=== PATIENT | female | born 1935 | race Caucasian/White ===

== ENCOUNTER 2019-04-10 16:55 | Emergency (ER) | payer OTHER ==
[~2019-04-10] VITALS: Ht 154.9 cm; Wt 56.7 kg
[~2019-04-10 16:55] MED LIST: AMLO5 PO; ASPI325EC PO; CELE200 PO; LISI20 PO; METPRE4DP PO; Norco 10-325 T1 EACH PO; ROSU5 PO; TRAM50 PO; Zofran Odt4 MG SL; [UNRECOGNIZED DRUG - REMARK]
== END 2019-04-10 19:12 | disposition home or self-care (01) ==
LOC: ER 16:55
DX: S86.911A Strain of unspecified muscle(s) and tendon(s) at lower leg level, right leg, initial encounter (principal); I10 Essential (primary) hypertension; F17.210 Nicotine dependence, cigarettes, uncomplicated; Z86.73 Personal history of transient ischemic attack (TIA), and cerebral infarction without residual deficits; Z88.8 Allergy status to other drugs, medicaments and biological substances; Z88.0 Allergy status to penicillin; Z79.899 Other long term (current) drug therapy; Z79.82 Long term (current) use of aspirin; W18.39XA Other fall on same level, initial encounter
CPT/HCPCS: 73564; 99283-25

== ENCOUNTER 2019-12-15 18:10 | Emergency (ER) | payer OTHER ==
[~2019-12-15] VITALS: Ht 154.9 cm; Wt 53.5 kg
[2019-12-15 20:25] LABS: Calcium, Ionized (POC) 1.16 mmol/L (1.10-1.46); Chloride (POC) 106 mmol/L (98-108); Creatinine (POC) 1.1 mg/dL (0.6-1.0); Glucose (ISTAT POC) 98 mg/dL (70-99); Hemoglobin (POC) 14.3 g/dL (12.0-16.0); Potassium (POC) 4.1 mmol/L (3.5-5.5); Sodium (POC) 139 mmol/L (135-148); Total CO2 (POC) 25 mmol/L (21-32)
[2019-12-15] MEDS ORDERED: HYDR1TAB94 PO (21:16)
[2019-12-19] MEDS ORDERED: Norco 5-325 Ta1 EACH PO (20:57)
[2019-12-25] MEDS ORDERED: Roxicodone5 MG PO (16:45)
[2019-12-25] MEDS ORDERED: Kristalose20 GM PO (16:45)
== END 2019-12-15 21:25 | disposition home or self-care (01) ==
LOC: ER 18:10
PROVIDERS: Emergency Medicine
DX: S32.019A Unspecified fracture of first lumbar vertebra, initial encounter for closed fracture (principal); S32.029A Unspecified fracture of second lumbar vertebra, initial encounter for closed fracture; S32.049A Unspecified fracture of fourth lumbar vertebra, initial encounter for closed fracture; S32.039A Unspecified fracture of third lumbar vertebra, initial encounter for closed fracture; F03.90 Unspecified dementia, unspecified severity, without behavioral disturbance, psychotic disturbance, mood disturbance, and anxiety; Z88.0 Allergy status to penicillin; Z88.5 Allergy status to narcotic agent; Z79.899 Other long term (current) drug therapy; I10 Essential (primary) hypertension; Z86.73 Personal history of transient ischemic attack (TIA), and cerebral infarction without residual deficits; F17.200 Nicotine dependence, unspecified, uncomplicated; W18.30XA Fall on same level, unspecified, initial encounter
CPT/HCPCS: 36415; 72100; 72170; 80047; 85014; 93005; 93010; 99284-25

== ENCOUNTER 2020-06-27 17:10 | Emergency (ER) | payer OTHER ==
[~2020-06-27] VITALS: Ht 167.6 cm; Wt 59.0 kg
[~2020-06-27 17:10] MED LIST changes: +HYDR1TAB94 PO; +Kristalose20 GM PO; +Norco 5-325 Ta1 EACH PO; +Roxicodone5 MG PO
[2020-06-27 18:00] LABS: BASOPHILS ABSOLUTE AUTO 0.05 K/mm3 (0.00-0.23); BASOPHILS PERCENT AUTO 1 % (0-2); EOSINOPHILS ABSOLUTE AUTO 0.15 K/mm3 (0.00-0.68); EOSINOPHILS PERCENT AUTO 2 % (0-6); Hematocrit 38.4 % (33.0-51.0); Hemoglobin 12.2 g/dL (11.5-16.0); IMMATURE GRAN ABSOLUTE AUTO 0.03 K/mm3 (0.00-0.10); IMMATURE GRAN PERCENT AUTO 0 % (0-1); LYMPHOCYTES ABSOLUTE AUTO 2.29 K/mm3 (0.84-5.20); LYMPHOCYTES PERCENT AUTO 33 % (21-46); MONOCYTES ABSOLUTE AUTO 0.44 K/mm3 (0.16-1.47); MONOCYTES PERCENT AUTO 6 % (4-13); Mean Corpuscular HGB 28.9 pg (26.0-34.0); Mean Corpuscular HGB Conc 31.8 g/dL (31.5-36.5); Mean Corpuscular Volume 91 fL (80-100); Mean Platelet Volume 10.5 fL (9.1-12.4); NEUTROPHILS ABSOLUTE AUTO 4.08 K/mm3 (1.96-9.15); NEUTROPHILS PERCENT AUTO 58 % (41-73); Platelet Count 289 K/mm3 (150-400); RDW Coefficient Variation 13.2 % (11.7-14.2); RDW Standard Deviation 43.8 fL (35.1-46.3); Red Blood Cell Count 4.22 M/mm3 (3.80-5.20); White Blood Cell Count 7.04 K/mm3 (4.00-11.30)
[2020-06-27 18:11] LABS: Albumin, Blood 3.4 g/dL (3.4-5.0); Albumin/Globulin Ratio 1.1 (0.8-1.8); Bilirubin, Total 0.3 mg/dL (0.1-1.0); Bun/Creatinine Ratio 22.6 (12.0-20.0); Calcium, Blood 8.5 mg/dL (8.5-10.1); Creatinine, Blood 0.98 mg/dL (0.40-1.00); Globulin, Blood 3.2 g/dL (2.2-4.0); Potassium, Blood 4.6 mmol/L (3.5-5.5); Total Protein, Blood 6.6 g/dL (6.4-8.2)
== END 2020-06-27 20:12 | disposition home or self-care (01) ==
LOC: ER 17:10
PROVIDERS: Emergency Medicine
DX: S40.012A Contusion of left shoulder, initial encounter (principal); S20.212A Contusion of left front wall of thorax, initial encounter; S09.90XA Unspecified injury of head, initial encounter; Z88.0 Allergy status to penicillin; Z88.5 Allergy status to narcotic agent; Z79.899 Other long term (current) drug therapy; I10 Essential (primary) hypertension; F17.200 Nicotine dependence, unspecified, uncomplicated; W01.0XXA Fall on same level from slipping, tripping and stumbling without subsequent striking against object, initial encounter; Y92.000 Kitchen of unspecified non-institutional (private) residence as the place of occurrence of the external cause
CPT/HCPCS: 70450; 71045; 72125; 73030; 80053; 85025; 93005; 93010; 99284-25

== ENCOUNTER 2020-09-23 18:10 | Emergency (ER) | payer OTHER ==
[~2020-09-23] VITALS: Ht 154.9 cm; Wt 54.0 kg
[2020-09-23] MEDS ORDERED: Prednisone10 MG PO (21:36)
== END 2020-09-23 21:44 | disposition home or self-care (01) ==
LOC: ER 18:10
DX: M79.642 Pain in left hand (principal); E78.5 Hyperlipidemia, unspecified; I10 Essential (primary) hypertension; F17.200 Nicotine dependence, unspecified, uncomplicated; M25.532 Pain in left wrist
CPT/HCPCS: 29125; 36415; 73130; 99283-25; A9270; J7512; L3917

== ENCOUNTER 2021-02-11 17:27 | Inpatient (IN) | payer OTHER ==
[~2021-02-11] VITALS: Ht 147.3 cm; Wt 49.7 kg
[~2021-02-11 17:27] MED LIST changes: +Prednisone10 MG PO
[2021-02-11 18:00] LABS: BASOPHILS ABSOLUTE AUTO 0.05 K/mm3 (0.00-0.23); BASOPHILS PERCENT AUTO 0 % (0-2); EOSINOPHILS ABSOLUTE AUTO 0.06 K/mm3 (0.00-0.68); EOSINOPHILS PERCENT AUTO 0 % (0-6); Hematocrit 36.2 % (33.0-51.0); Hemoglobin 11.4 g/dL (11.5-16.0); IMMATURE GRAN ABSOLUTE AUTO 0.08 K/mm3 (0.00-0.10); IMMATURE GRAN PERCENT AUTO 1 % (0-1); LYMPHOCYTES ABSOLUTE AUTO 1.44 K/mm3 (0.84-5.20); LYMPHOCYTES PERCENT AUTO 10 % (21-46); MONOCYTES ABSOLUTE AUTO 0.69 K/mm3 (0.16-1.47); MONOCYTES PERCENT AUTO 5 % (4-13); Mean Corpuscular HGB 28.7 pg (26.0-34.0); Mean Corpuscular HGB Conc 31.5 g/dL (31.5-36.5); Mean Corpuscular Volume 91 fL (80-100); Mean Platelet Volume 10.7 fL (9.1-12.4); NEUTROPHILS ABSOLUTE AUTO 12.06 K/mm3 (1.96-9.15); NEUTROPHILS PERCENT AUTO 84 % (41-73); Platelet Count 467 K/mm3 (150-400); RDW Coefficient Variation 13.5 % (11.7-14.2); RDW Standard Deviation 45.4 fL (35.1-46.3); Red Blood Cell Count 3.97 M/mm3 (3.80-5.20); White Blood Cell Count 14.38 K/mm3 (4.00-11.30)
[2021-02-11 18:14] LABS: Alanine Aminotransfer (ALT/SGP 18 U/L (12-78); Albumin, Blood 2.9 g/dL (3.4-5.0); Albumin/Globulin Ratio 0.9 (0.8-1.8); Alk Phos 102 U/L (50-136); Anion Gap 4 mmol/L (6-16); Aspartate Aminotrans (AST/SGOT 21 U/L (12-37); Bilirubin, Total 0.3 mg/dL (0.1-1.0); Blood Urea Nitrogen 13 mg/dL (8-24); Bun/Creatinine Ratio 15.2 (12.0-20.0); CO2, Blood 27 mmol/L (21-32); Calcium, Blood 8.2 mg/dL (8.5-10.1); Chloride, Blood 112 mmol/L (98-108); Creatinine, Blood 0.86 mg/dL (0.40-1.00); Globulin, Blood 3.4 g/dL (2.2-4.0); Glomerular Filtration Rate >60 (60-); Glucose, Blood 114 mg/dL (70-99); Magnesium, Blood 2.2 mg/dL (1.6-2.4); Potassium, Blood 4.2 mmol/L (3.5-5.5); Sodium, Blood 143 mmol/L (136-145); Total Protein, Blood 6.3 g/dL (6.4-8.2)
[2021-02-11 23:05] LABS: SARS-Cov-2 (COVID-19) PCR, MMC NEGATIVE (NEGATIVE)
--- NOTE | 2021-02-12 03:09 | NUR ---
PT ALERT AND ORIENTED TO SELF ONLY. SHE IS UNABLE TO PROVIDE A HISTORY AND DOES NOT RECALL NAMES OF ANY FAMILY MEMBERS. ADMISSION HISTORY COMPLETED TO BEST OF ABILITY, UNABLE TO VERIFY MEDICATIONS, ALLERGIES, OR REACTIONS TO MEDICATIONS. WILL REQUEST DAY SHIFT TO CONFIRM WITH FAMILY.
[2021-02-12 04:12] LABS: BASOPHILS ABSOLUTE AUTO 0.03 K/mm3 (0.00-0.23); BASOPHILS PERCENT AUTO 0 % (0-2); EOSINOPHILS ABSOLUTE AUTO 0.03 K/mm3 (0.00-0.68); EOSINOPHILS PERCENT AUTO 0 % (0-6); Hematocrit 30.8 % (33.0-51.0); Hemoglobin 9.9 g/dL (11.5-16.0); IMMATURE GRAN ABSOLUTE AUTO 0.05 K/mm3 (0.00-0.10); IMMATURE GRAN PERCENT AUTO 1 % (0-1); LYMPHOCYTES ABSOLUTE AUTO 1.91 K/mm3 (0.84-5.20); LYMPHOCYTES PERCENT AUTO 17 % (21-46); MONOCYTES ABSOLUTE AUTO 0.78 K/mm3 (0.16-1.47); MONOCYTES PERCENT AUTO 7 % (4-13); Mean Corpuscular HGB 29.2 pg (26.0-34.0); Mean Corpuscular HGB Conc 32.1 g/dL (31.5-36.5); Mean Corpuscular Volume 91 fL (80-100); Mean Platelet Volume 10.3 fL (9.1-12.4); NEUTROPHILS ABSOLUTE AUTO 8.25 K/mm3 (1.96-9.15); NEUTROPHILS PERCENT AUTO 75 % (41-73); Platelet Count 361 K/mm3 (150-400); RDW Coefficient Variation 13.4 % (11.7-14.2); RDW Standard Deviation 45.2 fL (35.1-46.3); Red Blood Cell Count 3.39 M/mm3 (3.80-5.20); White Blood Cell Count 11.05 K/mm3 (4.00-11.30)
[2021-02-12 04:35] LABS: Alanine Aminotransfer (ALT/SGP 12 U/L (12-78); Albumin, Blood 2.4 g/dL (3.4-5.0); Albumin/Globulin Ratio 0.8 (0.8-1.8); Alk Phos 94 U/L (50-136); Anion Gap 4 mmol/L (6-16); Aspartate Aminotrans (AST/SGOT 14 U/L (12-37); Bilirubin, Total 0.4 mg/dL (0.1-1.0); Blood Urea Nitrogen 12 mg/dL (8-24); Bun/Creatinine Ratio 13.7 (12.0-20.0); CO2, Blood 28 mmol/L (21-32); Calcium, Blood 8.1 mg/dL (8.5-10.1); Chloride, Blood 111 mmol/L (98-108); Creatinine, Blood 0.88 mg/dL (0.40-1.00); Glomerular Filtration Rate >60 (60-); Glucose, Blood 100 mg/dL (70-99); Potassium, Blood 3.9 mmol/L (3.5-5.5); Sodium, Blood 143 mmol/L (136-145); Total Protein, Blood 5.4 g/dL (6.4-8.2)
--- NOTE | 2021-02-12 05:38 | NUR ---
SHIFT SUMMARY: SIA IS ALERT AND ORIENTED TO SELF. VSS, SYSTOLIC BP IMPROVES SIGNIFICANTLY AFTER ADMINISTRATION OF PAIN MEDICATION. SHE WAS MADE NPO AT MIDNIGHT, IV FLUIDS INFUSING. OLIMPIA PATENT, ATTENDS IN PLACE D/T UNKNOWN CONTINENCE STATUS. IV TO L AC PATENT, FLUIDS INFUSING. SHE HAS BEEN REPOSITIONED IN AN ATTEMPT TO ALLEVIATE HER PAIN. SHE HAS COMMENTED ON THINGS IN THE ROOM WHICH ARE NOT PRESENT. SHE IS LYING IN BED WITH THE CALL LIGHT IN REACH, BED ALARM ON FOR SAFETY. WILL REPORT TO DAY SHIFT RN.
--- NOTE | 2021-02-12 09:53 | NUR ---
ATTEMPTED TO CALL PT SON SHERRILL AT APPROX 0913. NO ANSWER AND VOICEMAIL SET UP.
--- NOTE | 2021-02-12 11:11 | NUR ---
MADE A PHONE CALL TO ABELARDO MCCARTNEY AT 1110, HE DID NOT ANSWER.
--- NOTE | 2021-02-12 12:48 | NUR ---
TALKED TO PATIENTS SON SHERRILL AT APPROX 1225, HE STATED THAT HE WOULD BE WILLING TO COME IN TO HELP CLARIFY PATIENTS PREFERENCES.
--- NOTE | 2021-02-12 15:38 | NUR ---
PT LEFT FOR SURGERY AT THIS TIME. GRANDSON WITH PATIENT FOR CONSENT.
--- NOTE | 2021-02-12 18:04 | NUR ---
02/12/21 1803 Nichelle Garza PT ENTERED OR WITH DOAN CATHETER
--- NOTE | 2021-02-12 18:53 | NUR ---
PT ARRIVED TO UNIT AT APPROX 1840. VITAL SIGNS TAKEN. PT HYPERTENSIVE & SATURATIONS OR 98% ON 3L. PT ASLEEP, RANDOMLY CALLING OUT. DRESSING C/D/I. PT UNABLE TO ANSWER QUESTIONS AND FOLLOW DIRECTIONS, UNABLE TO ASSESS. CLOSE TO BASELINE. BED ALARM ON, WILL REPORT TO ONCOMING RN.
--- NOTE | 2021-02-13 07:24 | NUR ---
SHIFT SUMMARY POD1 R FEMORAL GAMMA RODDING, ALERT BUT CONFUSED, REFUSED NURSING CARE, BED ALARM ON FOR SAFETY, DOAN IN PLACE AND DRAINING TO GRAVITY. NO ACUTE EVETNS THIS SHIFT. CALL LIGHT IN REACH, REPORT GIVEN TO DAY RN.
[2021-02-13 08:21] LABS: BASOPHILS ABSOLUTE AUTO 0.01 K/mm3 (0.00-0.23); BASOPHILS PERCENT AUTO 0 % (0-2); EOSINOPHILS PERCENT AUTO 0 % (0-6); Hematocrit 27.9 % (33.0-51.0); Hemoglobin 8.7 g/dL (11.5-16.0); IMMATURE GRAN ABSOLUTE AUTO 0.05 K/mm3 (0.00-0.10); IMMATURE GRAN PERCENT AUTO 1 % (0-1); LYMPHOCYTES ABSOLUTE AUTO 1.33 K/mm3 (0.84-5.20); LYMPHOCYTES PERCENT AUTO 14 % (21-46); MONOCYTES PERCENT AUTO 8 % (4-13); Mean Corpuscular HGB Conc 31.2 g/dL (31.5-36.5); Mean Corpuscular Volume 93 fL (80-100); Mean Platelet Volume 10.6 fL (9.1-12.4); NEUTROPHILS ABSOLUTE AUTO 7.28 K/mm3 (1.96-9.15); NEUTROPHILS PERCENT AUTO 77 % (41-73); Platelet Count 306 K/mm3 (150-400); RDW Coefficient Variation 13.5 % (11.7-14.2); RDW Standard Deviation 45.9 fL (35.1-46.3); White Blood Cell Count 9.47 K/mm3 (4.00-11.30)
[2021-02-13 08:38] LABS: Albumin, Blood 1.8 g/dL (3.4-5.0); Anion Gap 2 mmol/L (6-16); Blood Urea Nitrogen 16 mg/dL (8-24); Bun/Creatinine Ratio 14.4 (12.0-20.0); CO2, Blood 28 mmol/L (21-32); Calcium, Blood 7.9 mg/dL (8.5-10.1); Chloride, Blood 111 mmol/L (98-108); Creatinine, Blood 1.11 mg/dL (0.40-1.00); Glomerular Filtration Rate 47 (60-); Glucose, Blood 83 mg/dL (70-99); Phosphorus, Blood 4.5 mg/dL (2.5-4.9); Potassium, Blood 4.6 mmol/L (3.5-5.5); Sodium, Blood 141 mmol/L (136-145)
--- NOTE | 2021-02-13 10:32 | NUR ---
LEFT MESSAGE WITH APS TO NOTIFY THEM OF LARGE PRESSURE ULCERS TO BILATERAL GLUTEAL FOLDS. APPROX 9CM LONG BY 3 CM WIDE. PICTURES IN CHART. PRESENT ON ARRIVAL TO HOSPITAL. NOTIFED PHYSICIAN OF FINDINGS. PT ABLE TO HELP REPOSITION AND ROLL IN BED AT THIS TIME AFTER SURGERY.
--- NOTE | 2021-02-13 11:11 | NUR ---
TALKED WITH DR. ROSALES AT APPROX 1020 THIS AM. REPORTED WOUNDS ON PT BILATERAL GLUTEAL FOLDS AND ASKED ABOUT ORAL PAIN MEDICATION PT NO LONGER HAS IV ACCESS. ORDERED NORCO 1-2 TABS Q6H NEEDED.
--- NOTE | 2021-02-13 17:30 | NUR ---
SHIFT SUMMARY POD1 R HIP GAMMA NAILING. INCISIONS X3 CHANG[address] JOSHUA TODAY TO AQUACEL DRESSINGS, C/D/I. PRESSURE SORES TO BILATERAL COCCYX, COVERED WITH MEPLEX C/D/I, SEE PHOTOS IN CHART. PT CONFUSED AND YELLING OUT. PAIN BEING TREATED WITH ORAL PAIN MEDICATION. PT PULLED OUT HER IV THIS AM. DOAN IN PLACE DRAINING YELLOW URINE, PLAN FOR REMOVAL TOMORROW. P/T AND O/T ORDERED FOR TOMORROW. WILL REPORT TO ONCOMING RN.
[2021-02-14 04:10] LABS: BASOPHILS ABSOLUTE AUTO 0.02 K/mm3 (0.00-0.23); BASOPHILS PERCENT AUTO 0 % (0-2); EOSINOPHILS PERCENT AUTO 1 % (0-6); Hematocrit 25.3 % (33.0-51.0); IMMATURE GRAN ABSOLUTE AUTO 0.04 K/mm3 (0.00-0.10); IMMATURE GRAN PERCENT AUTO 1 % (0-1); LYMPHOCYTES PERCENT AUTO 26 % (21-46); MONOCYTES ABSOLUTE AUTO 0.79 K/mm3 (0.16-1.47); MONOCYTES PERCENT AUTO 10 % (4-13); Mean Corpuscular HGB 29.1 pg (26.0-34.0); Mean Corpuscular HGB Conc 31.6 g/dL (31.5-36.5); Mean Corpuscular Volume 92 fL (80-100); Mean Platelet Volume 10.3 fL (9.1-12.4); NEUTROPHILS PERCENT AUTO 62 % (41-73); Platelet Count 275 K/mm3 (150-400); RDW Coefficient Variation 13.7 % (11.7-14.2); RDW Standard Deviation 45.7 fL (35.1-46.3); Red Blood Cell Count 2.75 M/mm3 (3.80-5.20); White Blood Cell Count 8.05 K/mm3 (4.00-11.30)
[2021-02-14 04:28] LABS: Bun/Creatinine Ratio 16.3 (12.0-20.0); Calcium, Blood 7.9 mg/dL (8.5-10.1); Creatinine, Blood 1.41 mg/dL (0.40-1.00); Potassium, Blood 4.6 mmol/L (3.5-5.5)
--- NOTE | 2021-02-14 06:23 | NUR ---
PT IS A/OX1, TO SELF. FORGETFUL AND CONFUSED. HX OF DEMENTIA. DOES NOT USE CALL LIGHT, BUT DOES YELL OUT. STAFF NEED TO ANTICIPATE HER NEEDS. DOAN CATHETER PATENT, DRAINING CLEAR/YELLOW URINE. CBS, SATS 92-95% ON RA. WOUND TO LT POSTERIOR THIGH AND RT MEDIAL THIGH BOTH COVERED WITH MEPILEX DRESSINGS. PICTURES IN CHART. RIGHT HIP INCISION COVERED WITH FOAM DRESSING. ALL DRSG'S ARE CDI. NO PIV D/T PT PULLS THEM OUT.
--- NOTE | 2021-02-14 17:54 | NUR ---
PATIENT WORKED WITH OT AND PT TODAY. WAS UP TO CHAIR FOR A SHORT AMOUNT OF TIME. PATIENT IS MAX ASSIST FOR TRANSFERS PER THERAPY. DRESSING TO RIGHT HIP CDI. PATIENT IS ALERT AND ORIENTED TO SELF ONLY. UNABLE TO MAKE NEEDS AND WANTS KNOWN. DOAN CATH TAKEN OUT AT 1430 TODAY. WILL MONITOR.
--- NOTE | 2021-02-14 23:58 | NUR ---
ASSUMED CARE AT APPROX. 2300.
--- NOTE | 2021-02-15 01:24 | NUR ---
ATTEMPTED TO ROTATE PT WITH PILLOWS UNDER HIPS. PT REQUESTED THEM TO BE REMOVED. ELEVATED HEAD OF BED PER PT'S REQUEST.
--- NOTE | 2021-02-15 05:42 | NUR ---
SHIFT SUMMARY POD 3 FOR R HIP GAMMA NAIL. AQUACEL IN PLACE X2 ON R HIP AND C/D/I. PT PICKED AT PROXIMAL AQUACEL AND THAT WAS REPLACED DURING SHIFT. PT IS INCONTINENT AND ATTENDS IS IN PLACE. PT IS A&O X0 AND IS VERY CONFUSED. PT SHOWED NOT SIGNS OF N/V. PT REPORTS PAIN AND FLACC SCALE USED TO ASSESS. PT MEDICATED PER EMAR PRN. ROTATED PT THROUGHOUT SHIFT AND APPLIED ICE THERAPY. PT DECLINED REPOSITIONING WITH PILLOWS MULTIPLE TIMES. PT IS CURRENTLY ASLEEP IN BED AND CALL LIGHT IS WITHIN REACH. BED ALARM ON.
[2021-02-15 08:23] LABS: BASOPHILS ABSOLUTE AUTO 0.02 K/mm3 (0.00-0.23); BASOPHILS PERCENT AUTO 0 % (0-2); EOSINOPHILS PERCENT AUTO 1 % (0-6); Hematocrit 28.9 % (33.0-51.0); Hemoglobin 9.3 g/dL (11.5-16.0); IMMATURE GRAN ABSOLUTE AUTO 0.05 K/mm3 (0.00-0.10); IMMATURE GRAN PERCENT AUTO 1 % (0-1); LYMPHOCYTES ABSOLUTE AUTO 1.48 K/mm3 (0.84-5.20); LYMPHOCYTES PERCENT AUTO 17 % (21-46); MONOCYTES ABSOLUTE AUTO 0.64 K/mm3 (0.16-1.47); MONOCYTES PERCENT AUTO 7 % (4-13); Mean Corpuscular HGB 29.2 pg (26.0-34.0); Mean Corpuscular HGB Conc 32.2 g/dL (31.5-36.5); Mean Corpuscular Volume 91 fL (80-100); Mean Platelet Volume 9.9 fL (9.1-12.4); NEUTROPHILS ABSOLUTE AUTO 6.63 K/mm3 (1.96-9.15); NEUTROPHILS PERCENT AUTO 74 % (41-73); Platelet Count 360 K/mm3 (150-400); RDW Coefficient Variation 13.2 % (11.7-14.2); RDW Standard Deviation 44.1 fL (35.1-46.3); Red Blood Cell Count 3.18 M/mm3 (3.80-5.20); White Blood Cell Count 8.92 K/mm3 (4.00-11.30)
[2021-02-15 08:38] LABS: Bun/Creatinine Ratio 20.6 (12.0-20.0); Calcium, Blood 8.1 mg/dL (8.5-10.1); Creatinine, Blood 0.97 mg/dL (0.40-1.00); Potassium, Blood 4.3 mmol/L (3.5-5.5)
--- NOTE | 2021-02-15 13:08 | NUR ---
Update 02/15/21: Contacted Laxmi Tolliver for status check on approval to SNF. Requested that we re-fax paperwork, as they have not received it. Packet sent for review. Will also request prior auth as soon as approval received. Plan to contact family this evening to provide updates. Anticipate needs at time of discharge to include: SNF acceptance and prior auth, child protective services social worker - LTC planning with family, hospital F/U within 5-7 days, Negative COVID test, and transport to facility.
--- NOTE | 2021-02-15 17:17 | NUR ---
PATIENT ALERT TO SELF ONLY. PATIENT UNABLE TO MAKE WANTS AND NEEDS KNOWN, STAFF ANTICIPATES NEEDS. PATIENT OFTEN CRIES OUT BUT UNABLE TO TELL STAFF WHAT SHE IS CRYING ABOUT. PATIENT IS VERY CONFUSED. PATIENT DID WORK WITH BOTH OT AND PT TODAY AND WAS ABLE TO USE THE BSC AND HAD A MEDIUM SIZE BOWEL MOVEMENT. NO SIGNS OR SYMPTOMS ACUTE DISTRESS NOTED, CALL LIGHT AND WATER IN REACH BUT DOES NOT KNOW HOW TO USE THE CALL LIGHT. PATIENT HAS BEEN ACCEPTED TO A SNF/LTC FACILITY, CASE MANAGEMENT GOING TO CONTACT APS TO GO OVER PATIENTS CASE. UNABLE TO CONTACT ANY FAMILY, NO NUMBER FOR ELIAS IN CHART AND IS NOT ANSWERING THE PHONE. DRESSING TO RIGHT HIP C/D/I, DRESSINGS TO BILATER BACK THIGHS INTACT. BED ALARM ON AND WORKING, BED IN LOWEST POSITION. WILL MONITOR.
--- NOTE | 2021-02-16 05:30 | NUR ---
PT IS A/OX1, TO SELF. SHE IS CONFUSED. DOES NOT USE CALL LIGHT SO STAFF NEED TO ANTICPATE HER NEEDS. POD #4 FOR GAMMA NAILING TO RT HIP. SHE DID REMOVE DRESSINGS TO RIGHT HIP; NEW DRESSINGS APPLIED. THREE INCISIONS CDI W/ANGUS. NO S/SX INFECTION NOTED. DRSG'S TO RT THIGH AND LT THIGH ARE CDI. WEARS DISPOSABLE ADULT BRIEFS FOR B/B INCONTINENCE. STARTED SEROQUEL AND TRAZODONE YESTERDAY. MEDICATED WITH PRN NORCO X2 FOR PAIN. GOOD RESULTS.
[2021-02-16 09:48] LABS: SARS-Cov-2 (COVID-19) PCR, MMC NEGATIVE (NEGATIVE)
[2021-02-16] MEDS ORDERED: ACET325 PO (09:48)
[2021-02-16] MEDS ORDERED: HYDROCODONE-AC1 EA14 PO (09:50)
[2021-02-16] MEDS ORDERED: DOCU100 PO (09:50)
[2021-02-16] MEDS ORDERED: Seroquel Xr50 MG PO (09:50)
[2021-02-16] MEDS ORDERED: TRAZ50 PO (09:51)
--- NOTE | 2021-02-16 13:15 | NUR ---
ATTEMPTED TO CALL REPORT TO [facility], UNABLE TO SPEAK TO ANYONE, THEY TOOK CALL BACK NUMBER AND SAID WILL CALL BACK. INFORMED THEM TRANSPORT IS SET UP FOR 1315 TODAY.
--- NOTE | 2021-02-16 13:58 | NUR ---
Late Entry Copied FROM [facility] EMR 02/15/21 Update: ACCEPTED TO [facility], [place]. PRIOR AUTH RECEIVED FROM [facility]. NURSE JANIA CARING FOR PT. PROVIDED UPDATE THAT APS IS INVOLVED WITH AN OPEN CASE AND THAT THEY HAVE BEEN UNABLE TO CONTACT FAMILY FOR PT. I ATTEMPTED MULTIPLE TIMES TO CALL THE HOME NUMBER LISTED. NO OTHER NUMBERS LISTED. TRANSPORTATION IS SCHEDULED TO [facility] [place] AT 1315 ON 02/16/21. PT. WILL NEED TOOLMAN ASSISTANCE AT FACILITY WHILE RECEIVING REHAB.
--- NOTE | 2021-02-16 14:02 | NUR ---
UPDATE 02/16/21: DISCHARGE PACKET DELIVERED TO PATIENT'S ROOM. COVID TEST NEGATIVE. FAXED RESULTS TO FACILITY. PT. IS SCHEDULED FOR TRANSPORT VIA [facility]. RECEIVED CALL FROM SHE WHITE THAT [facility] ADMIN IS CONCERNED REGARDING FAMILY HISTORY OF COVID. WE DISCUSSED THE TWO NEGATIVE COVID TESTS AND THAT HER EXPOSURE WOULD NOT HAVE BEEN VERY RECENT. THEY ALSO EXPRESSED CONCERNS WITH NOT HAVING FAMILY INVOLVED AND ADVISED THAT THEY WOULD HAVE TO DELAY ACCEPTANCE UNTIL A FAMILY MEMBER WAS IN PLACE TO ASSIST WITH PT. I WAS ABLE TO TRACK DOWN A NUMBER FOR HER GRANDSON EDUAR. CONTACTED HIM AND HE IS AGREEABLE TO ASSIST IN ANYWAY NEEDED. HIS CONTACT NUMBER IS [phone]. PROVIDED UPDATE TO [facility]. THEY ARE STILL CONCERNED WITH RISK OF COVID EXPOSURE DESPITE VACCINE AND TWO NEGATIVE COVID TESTS. THEY ARE REQUESTING THAT PT. STAY IN THE HOSPITAL FOR 3 MORE DAYS, LAST EXPOSURE TO FAMILY IS UNKNOWN. I WILL CONTACT HER GRANDSON TO DISCUSS FURTHER. CONTACTED PATIENT'S GRANDSON AND HE ADVISED THAT IT IS NOT ACCURATE THAT SHE HAS BEEN EXPOSED TO COVID. 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 THE FAMILY HAD A ASSOCIATED THE CVA WITH HIM RECEIVING THE COVID VACCINE A FEW WEEKS PRIOR. THE GRANDSON BELIEVES THAT THE CONFUSION MIGHT HAVE COME FROM THE PATIENT ATTEMPTING TO EXPLAIN THAT. HER DID NOT HAVE COVID. HE ALSO DENIED ANY ADDITIONAL FAMILY MEMBERS WHO PT. HAS HAD CONTACT WITH BEING HOSPITALIZED WITH COVID. HE STATES THAT THE ONLY FAMILY MEMBER INVOLVED IN HER CARE HAS BEEN HIM. THAT IS CONSISTENT WITH WHAT I AM READING IN THE EMR CHART WELL. THERE IS NO DAUGHTER IN-[place] LISTED. CALLED AND DISCUSSED FURTHER WITH [facility] CLINICAL LOCK AND DAM REPAIRER SILVIA. THEY ARE AGREEABLE TO ACCEPTING PT. TRANSPORT CHANGED TO [facility] AND RE-SCHEDULED FOR 4 PM. BLUE FORM REQUIRED BY [facility] HAS BEEN COMPLETED AND WAS PLACED IN LOCKBOX OUTSIDE OF ROOM.
--- NOTE | 2021-02-16 14:02 | NUR ---
REPORT CALLED TO QUETA HAWLEY AT [facility] AT THIS TIME, AWAITING TRANSPORT TO ARRIVE FOR DISCHARGE.
--- NOTE | 2021-02-16 16:19 | NUR ---
PATIENT DISCHARGED VIA [facility]
== END 2021-02-16 16:13 | DRG 480 ==
LOC: ER 17:27 → SURS 22:41
PROVIDERS: Family Medicine; Internal Medicine Endocrinology, Diabetes & Metabolism; Student in an Organized Health Care Education/Training Program; ADMIT Internal Medicine
PROC: 0QS636Z Reposition Right Upper Femur with Intramedullary Internal Fixation Device, Percutaneous Approach (ICD-10-PCS; principal; 2021-02-11)
DX: S72.141A Displaced intertrochanteric fracture of right femur, initial encounter for closed fracture (principal); L89.303 Pressure ulcer of unspecified buttock, stage 3; Z20.822 Contact with and (suspected) exposure to COVID-19; I10 Essential (primary) hypertension; F03.90 Unspecified dementia, unspecified severity, without behavioral disturbance, psychotic disturbance, mood disturbance, and anxiety; M54.9 Dorsalgia, unspecified; G89.29 Other chronic pain; D64.9 Anemia, unspecified; M19.90 Unspecified osteoarthritis, unspecified site; Z88.5 Allergy status to narcotic agent; Z88.0 Allergy status to penicillin; Z79.52 Long term (current) use of systemic steroids; Z79.82 Long term (current) use of aspirin; Z79.899 Other long term (current) drug therapy; Z86.73 Personal history of transient ischemic attack (TIA), and cerebral infarction without residual deficits; W19.XXXA Unspecified fall, initial encounter
CPT/HCPCS: 36415; 51702; 73502; 80048; 80053; 80069; 83735; 84443; 85025; 86850; 86900; 86901; 86923; 93005; 93010; 94760; 96374-59; 96375-59; 97110; 97162; 97166; 97530; 97535; 99285-25; A9270; C1713; J0171; J0690; J1100; J1885; J2405; J2704; J3010; J7030; J7040; J7120; U0004

== ENCOUNTER 2021-04-01 10:49 | Inpatient (IN) | payer OTHER ==
[~2021-04-01] VITALS: Ht 165.1 cm; Wt 78.3 kg
[~2021-04-01 10:49] MED LIST changes: +ACET325 PO; +DOCU100 PO; +HYDROCODONE-AC1 EA14 PO; +Seroquel Xr50 MG PO; +TRAZ50 PO
[2021-04-01 11:37] LABS: Source, Urine Catheter
[2021-04-01 11:40] LABS: BASOPHILS ABSOLUTE AUTO 0.06 K/mm3 (0.00-0.23); BASOPHILS PERCENT AUTO 0 % (0-2); EOSINOPHILS ABSOLUTE AUTO 0.02 K/mm3 (0.00-0.68); EOSINOPHILS PERCENT AUTO 0 % (0-6); Hematocrit 44.6 % (33.0-51.0); Hemoglobin 13.2 g/dL (11.5-16.0); IMMATURE GRAN ABSOLUTE AUTO 0.34 K/mm3 (0.00-0.10); IMMATURE GRAN PERCENT AUTO 1 % (0-1); LYMPHOCYTES PERCENT AUTO 11 % (21-46); MONOCYTES ABSOLUTE AUTO 1.24 K/mm3 (0.16-1.47); MONOCYTES PERCENT AUTO 5 % (4-13); Mean Corpuscular HGB 28.3 pg (26.0-34.0); Mean Corpuscular HGB Conc 29.6 g/dL (31.5-36.5); Mean Corpuscular Volume 96 fL (80-100); Mean Platelet Volume 11.8 fL (9.1-12.4); NEUTROPHILS ABSOLUTE AUTO 21.33 K/mm3 (1.96-9.15); NEUTROPHILS PERCENT AUTO 83 % (41-73); Platelet Count 575 K/mm3 (150-400); RDW Coefficient Variation 14.4 % (11.7-14.2); Red Blood Cell Count 4.67 M/mm3 (3.80-5.20); White Blood Cell Count 25.69 K/mm3 (4.00-11.30)
[2021-04-01 11:42] LABS: Appearance, Urine Clear (Clear); Blood, Urine 1+ (Neg); Color, Urine Amber (P-Yellow); Glucose Qualitative, Urine Neg (Neg); Ketones, Urine Neg (Neg); Leukocyte Esterase, Urine 1+ (Neg); Nitrite, Urine Neg (Neg); Protein, Urine Neg (Neg); Specific Gravity, Urine 1.025 (1.003-1.022); Urobilinogen, Urine NORM (Normal)
[2021-04-01 12:02] LABS: Albumin, Blood 2.9 g/dL (3.4-5.0); Albumin/Globulin Ratio 0.6 (0.8-1.8); Bilirubin, Total 0.5 mg/dL (0.1-1.0); Bun/Creatinine Ratio 36.9 (12.0-20.0); Creatinine, Blood 4.61 mg/dL (0.40-1.00); Globulin, Blood 4.5 g/dL (2.2-4.0); Potassium, Blood 4.6 mmol/L (3.5-5.5); Total Protein, Blood 7.4 g/dL (6.4-8.2)
[2021-04-01 12:03] LABS: CPK Creatine Kinase 134 U/L (26-193); Ethanol (Alcohol), Blood, Med <3 mg/dL
[2021-04-01 12:05] LABS: Bilirubin, Urine 1+ (Neg)
[2021-04-01 12:10] LABS: PCO2 Arterial 34.9 mmHg (35-45); PO2 Arterial 246 mmHg (80-100); pH Blood Arterial 7.35 (7.35-7.45)
[2021-04-01 12:10] LABS: Amorphous Mod (0-Heavy)
[2021-04-01 12:12] LABS: Red Blood Cells, Urine 0-2 /hpf (0-2); Squamous Epithelial Cells Mod /hpf (Few); White Blood Cells, Urine 0-2 /hpf (0-5)
[2021-04-01 12:13] LABS: Bacteria Few /hpf
[2021-04-01 12:49] LABS: Influenza A, PCR NEGATIVE (NEGATIVE); Influenza B, PCR NEGATIVE (NEGATIVE); Resp Syncytial Virus, PCR NEGATIVE (NEGATIVE); SARS-Cov-2 (COVID-19) PCR, MMC NEGATIVE (NEGATIVE)
--- NOTE | 2021-04-01 17:34 | NUR ---
RECEIVED PT FROM ER. CALLED RE 2 IVF AT SAME TIME. ORDERS TO D/C LR. ALSO REVIEWED CODE STATUS. PER KEEP FULL CODE TONITE AND WILL REVIEW WITH FAMILY TOMORROW.
--- NOTE | 2021-04-01 18:36 | NUR ---
ADMITTED PT TO ROOM. SHE IS UNRESPONSIVE. EYES OPEN, LOOKED AT MY HAND FOR A MOMENT, THEN INTO SPACE. DOES NOT TRACK [place]AS[place]ITE WHEN REQUESTED. EYES OPEN, ADRIÁN 3/3. BRISK. LUNGS LIGHTLY WHEEZY T/O. BODY COOL, DRY. HANDS COLD. ON R.A. O2>90%. RESP EASY, UNLABORED. MOUTH OPEN, MOUTH BREATHINS. H/R REG, NO MURMER NOTED. NO TELE. PT CACHECTIC. ULCERS ON BILAT HEALS, BLACK. COCCYX RED, PURPLE, NOT BLANCHING. WILL REQUEST NITE SHIFT TAKE PIX. PILLOWS PLACED TO FLOAT. BED ALARM ON FOR SAFETY.
--- NOTE | 2021-04-01 18:42 | NUR ---
CALLED PT GRANDSON. HE STATES IS NEXT OF KIN. STATES HAS FORMS FOR NO TUES, NO [facility] SNF. DOES NOT HAVE INFO ON CURRENT STATUS FOR CODE. FEELS PROBABLY SHOULD BE DNR. STATES WALKED LAST ABOUT A WEEK AGO. DID TALK ABOUT 4 DAYS AGO. NO HOME O2. WAS IN FACILITY FROM [facility], WHICH WAS REPAIRED HERE. HE TO COME IN TONITE TO FINISH ADMIT. ALSO DISCUSS CODE STATUS TO DNR AT LEAST. CLEARED WITH ULTIMATE HOOPS SCOREBOARD OPERATOR. CALLED PALIATIVE CARE. THEY TO CALL FAMILY. PERHAPS SEE HIM TONITE.
--- NOTE | 2021-04-01 19:29 | NUR ---
SPOKE WITH PT'S CHERELLE AND GRANDSON SHERRILL. POLST FILLED OUT BY PHONE, PT CODE STATUS CHANGED TO DNR.
--- NOTE | 2021-04-02 03:37 | NUR ---
SHIFT SUMMARY SIA IS ALERT TO VERBAL STIMULI, OCCASSIONALLY. NOT ABLE TO FOLLOW COMMANDS. FAMILY VISITED - GRANDSON EDUAR WHO PROVIDED POA PAPERWORK AND SIGNED DNR POLST. DNR ARMBAND APPLIED TO RIGHT WRIST. PT UNABLE TO INTERACT WITH GRANDSON. ATTENDS IN PLACE, INCONTINENT. BED IN LOWEST POSITION, ARM BANDS ON. HEEL PROTECTORS ON DUE TO NECTROTIC PRESSURE ULCERS, MEPILEXES IN PLACE TO LEFT BUTTOCKS AND SACRUM DUE TO PRESSURE ULCERS. PICTURES IN CHART. ORAL CARE PROVIDED WITH LIP MOISTURIZER AND ORAL DEBRIDING AGENT. ROOM AIR. IV ACCESS TO LEFT AC, INFUSING DEXTROSE 5% AT 150 ML/HR DUE TO PT'S HX OF HYPOGLYCEMIA.
[2021-04-02 05:43] LABS: BASOPHILS ABSOLUTE AUTO 0.08 K/mm3 (0.00-0.23); BASOPHILS PERCENT AUTO 0 % (0-2); EOSINOPHILS ABSOLUTE AUTO 0.07 K/mm3 (0.00-0.68); EOSINOPHILS PERCENT AUTO 0 % (0-6); Hematocrit 37.1 % (33.0-51.0); Hemoglobin 11.3 g/dL (11.5-16.0); IMMATURE GRAN ABSOLUTE AUTO 0.96 K/mm3 (0.00-0.10); IMMATURE GRAN PERCENT AUTO 3 % (0-1); LYMPHOCYTES ABSOLUTE AUTO 2.54 K/mm3 (0.84-5.20); LYMPHOCYTES PERCENT AUTO 8 % (21-46); MONOCYTES ABSOLUTE AUTO 1.69 K/mm3 (0.16-1.47); MONOCYTES PERCENT AUTO 5 % (4-13); Mean Corpuscular HGB 28.2 pg (26.0-34.0); Mean Corpuscular HGB Conc 30.5 g/dL (31.5-36.5); Mean Corpuscular Volume 93 fL (80-100); Mean Platelet Volume 11.9 fL (9.1-12.4); NEUTROPHILS ABSOLUTE AUTO 27.44 K/mm3 (1.96-9.15); NEUTROPHILS PERCENT AUTO 84 % (41-73); Platelet Count 447 K/mm3 (150-400); RDW Coefficient Variation 14.4 % (11.7-14.2); RDW Standard Deviation 49.1 fL (35.1-46.3); Red Blood Cell Count 4.01 M/mm3 (3.80-5.20); White Blood Cell Count 32.78 K/mm3 (4.00-11.30)
[2021-04-02 06:32] LABS: Magnesium, Blood 2.8 mg/dL (1.6-2.4)
[2021-04-02 06:33] LABS: Bun/Creatinine Ratio 37.9 (12.0-20.0); Calcium, Blood 8.4 mg/dL (8.5-10.1); Creatinine, Blood 4.56 mg/dL (0.40-1.00); Potassium, Blood 4.4 mmol/L (3.5-5.5)
--- NOTE | 2021-04-02 10:02 | NUR ---
Pt resting in bed with her eyes closed. Pt awakes to gentle verbal stimuli. Pt does not respond verbally and cloeses her eyes again. Pt appears comfortable with no S/S of distress at this time. Placed Pt's POLST on her whiteboard in her room for MD to sign. Will obtain copy of POLST upon MD signature for medical records. Palliative Care will remain available.
--- NOTE | 2021-04-02 11:16 | NUR ---
PT RECIEVED IN BED THIS MORNING,NON VERBAL,OPENS EYES TO VERBAL STIMULI INTERMITTENTLY,NO MOVEMENT, APPEARS LETHARGIC,VITALS WNL, NO ACUTE DISTRESS NOTED,REPOSITION EVERY 1 TO 2 HOURS,INCONTINENT OF B/B. CALL LIGHT WITHIN REACH.
--- NOTE | 2021-04-02 18:23 | NUR ---
PT REMAIN SAME CONDITION,NON VERBAL,OPENS HER EYES TO STIMULI AND CLOSES AGAIN, MOUTH BREATHER, NO COMMUNICATION,NO ACUTE DISTRESS ,REPOSITION EVERY 1 TO 2 HOURS, INCONTINENT CARE PROVIDED,HAD A BM,CALL LIGHT IN PLACE, NO S/S OF PAIN WILL CONTINUE TO MONITOR.
--- NOTE | 2021-04-03 05:28 | NUR ---
PT RESTING IN BED THIS SHIFT. NON VERBAL, GRIMASES WITH STIMULI BUT HAS KEPT EYES CLOSED THIS SHIFT. ELIVATED RR WITH WET COUGH, PROVIDER NOTIFIED AND PATCH ORDERED. Q2 TURNS AND ORAL CARE X3 THIS SHIFT. STAFF WILL CONTINUE TO MONITOR FOR CHANGES.
--- NOTE | 2021-04-03 08:13 | NUR ---
Spoke with both Charge RNs Paris and Chiara. Pt has been non responsive during dietary clerk with secretions noted. Goals of care discussion with family may be beneficial. Pt resting in bed with her eyes closed. Pt remains with her eyes closed with verbal stimuli and tactile stimuli. Mild secretions noted. Called and spoke with Dr Perez. Discussed case with Dr Perez in agreement goals of care discussion with family may be beneficial. Called and left message with Pt's grandson Berto with request for a return phone call. Palliative Care will remain available.
--- NOTE | 2021-04-03 11:00 | NUR ---
Rom Thomson returned phone call. Provided update and discussed options including considering comfort care. Educated on comfort care philosophy with V/U made by Berto. Berto is in agreement with moving forward with comfort care only. Spoke with Dr Perez and discussed case. Placed order for comfort care, comfort care order set, and D/C maintenance medications per V/O from Dr Perez. Roxicodone oral solution will be used in place of Roxanol due to Pt's allergy to morphine. Consulted with Hospital Pharmacist Stefani who reports Pt has used oxycodone and hydrocodone in the past with no issues. Spoke with Pt's Primary RN Erika and discussed case. Palliative Care will remain available.
--- NOTE | 2021-04-03 14:57 | NUR ---
SUGEY,PALLIATIVE NURSE VIVEKVIOLAALEXI GOT HOLD OF GRANDSON AND PT WAS PLACED ON COMFORT CARE,PT CONTINUE TO HAVE BM BUT NO URINE OUTPUT.ORAL CARE GIVEN, DENTURES REMOVED BY MORNING SHOW PRODUCER AND PLACED IN CUP TO BE GIVEN TO FAMILY, PT IS NON VERBAL AND ONLY MOANS WHEN MOVED.PAIN MEDICATIONS AND ATROPINE FOR SECRETIONS GIVEN WELL.PT PRESENTLY SLEEPING, NO RESP DISTRESS NOTED.
--- NOTE | 2021-04-04 05:01 | NUR ---
PT RESTING IN BED WITH COMFOR CARE ORDERS. PT WAS AWAKE AND ALERT UNTIL 0000, AND WAS BALE TO RESPOND TO PROMTS WITH "YES" AND "ALRIGHT." PT CONTINUES TO GRIMACE WHTIH ACTIVITY SUCH Q2 TURNS, PAIN TREATED PER EMAR. PT DID VOMIT DARK EMESIS WITH MUCUS, TUNED ON SIDE AND PT WAS ABLE TO CLEAR HER OWN AIRWAY. PT DID OPEN HER EYES TO NOISE AND STIMULI WELL. WILL CONTINUE TO MONITOR.
--- NOTE | 2021-04-04 16:56 | NUR ---
Visit made today; pt is lying in bed, with comfort care measures in place. She appears to be sleeping. Her eyes are closed, resp even unlabored. Bedside nurse medicating for comfort. Spoke to pt's grandson at the end of last week, and he was agreeable to place pt on comfort care, as she is no longer responsive. She appears relaxed, no furrowed brow. No changes made to pt's care.
--- NOTE | 2021-04-04 20:05 | NUR ---
Patient is dry and comfortable no pandya at this time. Turned to the left.
--- NOTE | 2021-04-05 07:05 | NUR ---
PATIENT HAD A FAIR SHIFT. WAS NOT IN ANY FORM OF DISTRESS. WILL CONTINUE TO KEEP HER COMFORTABLE.
--- NOTE | 2021-04-05 14:13 | NUR ---
REPOSITIONED PATIENT FROM FLOATING TO RIGHT SIDE UP SUPPORTED ON PILLOWS. ATTEMPTED ORAL CARE PATIENT WOULD NOT OPEN MOUTH.
--- NOTE | 2021-04-05 16:40 | NUR ---
REPOSITIONED PATIENT TO LEFT SIDE UP SUPPORTED BY PILLOWS. WHEN MOVED PATIENT WOULD MOAN OUT IN PAIN. WHEN ASKED IF PATIENT WANTED PAIN MEDICATION PATIENT MOANED YES.
--- NOTE | 2021-04-05 17:29 | NUR ---
SHIFT SUMMARY PATIENT RESTING CONFORTABLY IN BED. PATIENT SLEPT MOST OF THE DAY. PATIENT OPENED EYES WHEN SPOKEN TO. WOULD OCCASIONALY ANSWER YES OR NO QUESTIONS. PATIENT WOULD MOAN IN PAIN DURING REPOSITIONING. URINE OUTPUT WAS MINIMAL. PATIENT WAS ABLE TO TOLERATE A FEW ICE CHIPS AND SPOONFULS OF WATER. WHEN TRYING TO PROVIDE ORAL CARE PATIENT WOULD RESIST AND NOT OPEN MOUTH. WILL CONTINUE TO PROVIDE COMFORT CARE NEEDED.
--- NOTE | 2021-04-05 18:44 | NUR ---
REPOSITIONED PATIENT TO FLOATING POSITION. WHEN ASKED IF PATIENT WANTED PAIN MEDS PATIENT MOANED NO. OFFERED PATIENT ICE CHIPS. TOLERATED WELL.
--- NOTE | 2021-04-05 20:02 | NUR ---
PATIENT IS SLEEPING CALMLY AND COMFORTABLE IN BED. NOT IN ANY DISTRESS. WILL CONTINUE TO MONITOR HER. NO COMPLAINTS AT THIS TIME.
--- NOTE | 2021-04-06 06:36 | NUR ---
GEOLOGIC TECHNICIAN SUMMARY PATIENT WAS MADE COMFORTABLE. DENIED PAIN. WILL CONTINUE TO MONITOR HER.
--- NOTE | 2021-04-06 10:17 | NUR ---
Pt resting in bed with her eyes closed. Pt does not respond to gentle voice or therapeutic touch. No S/S of distress at this time. Spoke with Primary RN Sabiha and discussed case. Spoke with Dr Thorpe and discussed case. D/C NPO status per V/O from Dr Thorpe. Palliative Care will remain available.
--- NOTE | 2021-04-06 17:07 | NUR ---
SHIFT SUMMARY PATIENT SLEEPING COMFORTABLY IN BED. PATIENT SLEPT ALL DAY ONLY OPENING EYES AND MOAN DURING REPOSITIONING AND IMMEDIATELY GOING BACK TO SLEEP. WILL CONTINUE TO PROVIDE COMFORT CARE.
--- NOTE | 2021-04-06 20:11 | NUR ---
PATIENT WAS MET IN BED, SLEEPING SOUNDLY. SHE IS NOT IN ANY FORM OF DISTRESS. NO DISCOMFORT AT ALL. WILL CONTINUE TO MONITOR HER.
--- NOTE | 2021-04-07 07:27 | NUR ---
MANAGEMENT SERVICES TECHNICIAN SUMMARY PATIENT HAD A CALM SHIFT. NO COMPLAINTS. SHE WAS COMFORTABLE THROUGH OUT THE NIGHT.
--- NOTE | 2021-04-07 14:45 | NUR ---
[facility] Care Comfort care visit. Case conferenced with RN and reviewed EMR prior to visit. Pt asleep/unresponsive. RN reports noted progression in dying process. Pt unable to take sips or swallow safely today and was able to yesterday. No nonverbal indicators of pain or distress noted. RN reports primary s/s noted with repositioning. Discussed premedicating prior to next change of position. No visitors in room at the time of my visit.
--- NOTE | 2021-04-08 04:49 | NUR ---
PLUMBER'S HELPER SUMMARY PATIENT HAD A COMFORTABLE SHIFT. NO ISSUES OVERNIGHT. WILL CONTINUE TO MONITOR HER.
--- NOTE | 2021-04-08 09:25 | NUR ---
PT MEDICATED WITH 5 MG SL ROXINOL PRIOR TO POSITION CHANGE
--- NOTE | 2021-04-08 16:13 | NUR ---
MEDICATED WITH 5 MG SL ROXANOL PRIOR TO REPOSITIONING
--- NOTE | 2021-04-08 22:33 | NUR ---
PT RESTING ON BED QUIETLY.
--- NOTE | 2021-04-09 00:49 | NUR ---
PT RESTING ON BED. NO ACUTE DISTRESSS OBSERVED
--- NOTE | 2021-04-09 05:23 | NUR ---
SHIFT SUMMARY PT RESTING ON BED. OPEN HER EYES SOMETIMES. PAIN MEDS GIVEN. NO AGITATION. CHANGING POSITION EVERY 2 HRS. AND COMFORT CARE GIVEN.
--- NOTE | 2021-04-09 07:14 | NUR ---
PT RESTING QUITLY ON BED. MOANING WHEN TURNING. STILL OPEN HER EYES WHEN NAME CALLED. KEEP MONITORING
--- NOTE | 2021-04-09 16:40 | NUR ---
SHIFT SUMMARY PT CONTINUES ON COMFORT CARE MEASURES ORDERED. PT CALM AND COMFORTABLY ASLEEP IN BED T/O SHIFT. NO S/S OF ANY DISTRESS OR PAIN NOTED. Q2 TURNS FOR COMFORT. MEPILEX DRESSING TO COCCYX AREA IN PLACE. BED AT LOWEST POSITION.
--- NOTE | 2021-04-10 06:30 | NUR ---
PERIPHERAL EDP EQUIPMENT OPERATOR SUMMARY PATIENT HAD A FAIR SHIFT. SHE WAS KEPT COMFORTABLE ALL NIGHT. NO EVENTS OVERNIGHT. WILL CONTINUE TO MONITOR HER.
--- NOTE | 2021-04-10 15:17 | NUR ---
Pt appears to be relaxed, eyes closed, resp shallow and unlabored. No s/s of distress. Med review shows one does roxanol in past 24 hours. No other medications given. Pt is clean, dry and warm. She has not been rousabele since arriving at the hospital. I will remain available.
--- NOTE | 2021-04-10 17:06 | NUR ---
SHIFT SUMMARY PATIENT ON COMFORT CARE. PATIENT OPENS EYES WHEN REPOSITIONED, DOES NOT TRACK WITH EYES OR RESPOND. PATIENT RESTING WITHOUT SIGN OF PAIN THROUGHOUT THIS SHIFT. PATIENT REPOSITIONED AND CARE PROVIDED Q2H. NO ACUTE CHANGES THIS SHIFT. PATIENT CURRENTLY RESTING PEACEFULLY.
--- NOTE | 2021-04-11 04:55 | NUR ---
SUMMARY PT HAS REMAINED COMFORTABLE THROUGHOUT SHIFT. PT REPOSITIONED FREQUENTLY AND CHANGED NEEDED. PT CURRENTLY SLEEPING AND IN NO DISTRESS.
--- NOTE | 2021-04-11 11:24 | NUR ---
Pt remains non-responsive, respirations are uneven, but not labored. No s/s of distress. Continue with current plan of care.
--- NOTE | 2021-04-11 16:04 | NUR ---
SHIFT SUMMARY PT RESTING QUIETLY AT START OF SHIFT. PER REPORT, PT HAS BEEN NONRESPONSIVE ON COMFORT CARE. PT BEING TURNED AND CHANGED PER PROTOCOL WITH ORAL CARE WELL. PT DOES RESPOND WHEN SPONGE PLACED IN MOUTH, BY CLAMPING MOUTH SHUT. DOES NOT OPEN EYES THOUGH. BED BATH AND LINEN CHANGE DONE. PT IS STILL RESTING QUIETLY WITH RESP E/U. NO S/SX'S OF DISTRESS NOTED. NO FAMILY IN AGAIN TODAY TO PRESENT. WILL CONTINUE TO MONITOR.
--- NOTE | 2021-04-12 04:05 | NUR ---
PT HAS BEEN RESTING ALL SHIFT, NO SIGNS OF PAIN, SOB, SECRETIONS, TEMPERATURE ARE ANXIETY TO REPORT. STAFF WILL CONTINUE TO MONITOR FOR COMFORT, Q2 TURNS AND ORAL CARE.
--- NOTE | 2021-04-12 18:01 | NUR ---
pt respirations slow and deep. Review of pt status with nursing.
--- NOTE | 2021-04-12 18:11 | NUR ---
SHIFT SUMMARY PT RESTING QUIETLY AT START OF SHIFT; RESP SLOW, SHALLOW, AND UNEVEN. RESP INCREASE AND DECREASE THRU OUT THE DAY. MOSTLY SOFT AND UNLABORED. PT DID MOAN IN PAIN A COUPLE OF TIMES WHEN CHANGING TODAY. MEDICATED PER EMAR. WHEN ORAL CARE DONE, PT WOULD CLAMP DOWN ON SPONGE AND SEEM TO SWALLOW MOISTURE ON SPONGE AT TIMES. OPENED EYES A COUPLE OF THE TIMES WHEN TURNING, BUT DOES NOT FOCUS. PALLIATIVE CARE ALSO IN TO CHK ON PT. NO OTHER VISITORS AGAIN TODAY. FAMILY NOTIFIED BY PALLIATIVE CARE YESTERDAY, FOR UPDATE. WILL CONTINUE TO MONITOR.
--- NOTE | 2021-04-13 05:56 | NUR ---
PT RESTING COMFORTABLY, COMFORT CARE CONTINUED WELL ORAL CARE Q2H AND Q2H TURN/REPOSITIONING. NO COMPAINTS OR SIGNS OF DISTRESS NOTED. NO CHANGES OVERNIGHT. BED IN LOW POSITION AND SAFETY PRECAUTIONS MAINTAINED.
--- NOTE | 2021-04-13 08:10 | NUR ---
PATIENT COMFORT: NO SIGNS OR SYMPTOMS OF PAIN PRESENT. PATIENT RESTING CALMLY IN THE BED. NO MOANING OR AGITATION NOTED DURING REPOSITIONING.
--- NOTE | 2021-04-13 11:52 | NUR ---
Visit made with Story Analyst Sarah. Also spoke to pt's bedside RN Katy who will continue with comfort measures including roxanol as needed, to maintain her comfort and prevent air hunger. Pt respirations are shallow, uneven. She remains non-responsive, and staff is keeping her comfortable, clean, repositioned. Prevention measures in place to minimize skin breakdown. Heel protectors on. Will continue to monitor, reassess t/o the shift.
--- NOTE | 2021-04-13 19:16 | NUR ---
END OF SHIFT SUMMARY: PATIENT APPEARED COMFORTABLE THROUGHOUT THE SHIFT. MEDICATED ONE TIME FOR SLIGHT MOANING. BROW UNFURROWED, NO AGIGITATION, MOANING OR OTHER SIGNS OF DISCOMFORT/PAIN. PATIENT TOLERATED REPOSITIONING. NO VOIDS OR BOWEL MOVEMENTS. PATIENT DID NOT RESPOND TO VOICE OR OPEN HER EYES WITH REPOSITIONING.
--- NOTE | 2021-04-14 02:36 | NUR ---
NURSE NOTE PT. PASSED AT 0154 UPON ASSESSMENT BY THIS NURSE. PT. IS A DNR AND NEXT OF KIN NOTIFIED AT 0208. ONCALL DR. GRAHAM NOTIFIED AT 0230. POST MORTEM CARE COMPLETED BY STAFF.
--- NOTE | 2021-04-18 08:24 | NUR ---
Date of expiration is 04/14/21 at approximately 1:54 am.
== END 2021-04-14 01:54 | DRG 682 ==
LOC: ER 10:49 → ERHOLD 12:47 → MEDS 12:47
PROVIDERS: Emergency Medicine; ADMIT Internal Medicine
DX: N17.9 Acute kidney failure, unspecified (principal); G92.8 Other toxic encephalopathy; I63.9 Cerebral infarction, unspecified; F05 Delirium due to known physiological condition; E87.1 Hypo-osmolality and hyponatremia; E87.0 Hyperosmolality and hypernatremia; F03.91 Unspecified dementia, unspecified severity, with behavioral disturbance; Z66 Do not resuscitate; Z51.5 Encounter for palliative care; Z20.822 Contact with and (suspected) exposure to COVID-19; I12.9 Hypertensive chronic kidney disease with stage 1 through stage 4 chronic kidney disease, or unspecified chronic kidney disease; N18.30 Chronic kidney disease, stage 3 unspecified; M19.90 Unspecified osteoarthritis, unspecified site; E86.0 Dehydration; J43.9 Emphysema, unspecified; E78.5 Hyperlipidemia, unspecified; B96.20 Unspecified Escherichia coli [E. coli] as the cause of diseases classified elsewhere
CPT/HCPCS: 0241U; 36415; 36600; 70450; 71045; 80048; 80053; 81001; 82550; 82803; 83735; 83880; 84484; 85025; 87077; 87086; 87186; 93005; 93010; 96374; 96375; 99285-25; A9270; G0480; J0696; J1644; J7070; J7120